=== PATIENT | female | born 1965 | race Caucasian/White ===

== ENCOUNTER 2016-10-18 14:51 | Emergency (ER) | payer MEDICAID ==
[~2016-10-18] VITALS: Ht 160 cm; Wt 69.1 kg
[2016-10-18 14:59] VITALS: BP 143/83
[2016-10-18] MEDS ORDERED: DEXAMETHASONE 4 MG TABLET PO STA (15:25)
[2016-10-18] MEDS ORDERED: DEXAMETHASONE 4 MG TABLET ONE (15:25)
== END 2016-10-18 15:34 | disposition home or self-care (01) ==
LOC: ED 15:30
DX: J02.8 Acute pharyngitis due to other specified organisms (principal); B97.89 Other viral agents as the cause of diseases classified elsewhere; J01.10 Acute frontal sinusitis, unspecified; J01.00 Acute maxillary sinusitis, unspecified
CPT/HCPCS: 99283

== ENCOUNTER 2017-03-04 18:07 | Emergency (ER) | payer MEDICAID ==
[~2017-03-04] VITALS: Ht 160 cm; Wt 67.0 kg
[2017-03-04] MEDS ORDERED: SODIUM CHLORIDE FLUSH 10ML SYR IVF ONE (18:30)
[2017-03-04] MEDS ORDERED: ONDANSETRON 2MG/ML, 2ML IVPush ONE (18:30)
[2017-03-04] MEDS ORDERED: SODIUM CHLORIDE 0.9% 1,000ML IVBOLUS ONE (18:30)
[2017-03-04] MEDS ORDERED: FAMOTIDINE 20 MG/2 ML IVP ONE (18:30)
[2017-03-04] MEDS ORDERED: MORPHINE SULFATE 4 MG/ML, 1ML IVPush ONE (19:00)
[2017-03-04 19:01] LABS: HEMATOCRIT 37.4 % (34.6-47.8); HEMOGLOBIN 12.6 g/dL (11.7-16.4); WHITE BLOOD COUNT 8.8 x10^3/uL (3.4-10)
[2017-03-04] MEDS ORDERED: BISA5TAB38 PO (19:03)
[2017-03-04 19:15] LABS: ASPARTATE AMINO TRANSFERASE 14 U/L (15-37); BLOOD UREA NITROGEN 10 mg/dL (7-18)
[2017-03-04] MEDS ORDERED: ONDANSETRON 2MG/ML, 2ML ONE (19:26)
[2017-03-04] MEDS ORDERED: MORPHINE SULFATE 4 MG/ML, 1ML ONE (19:26)
[2017-03-04] MEDS ORDERED: FAMOTIDINE 20 MG/2 ML ONE (19:26)
[2017-03-04 19:45] LABS: PATH.CAST-FLAG NOT PRESENT; SPERM-FLAG NOT PRESENT; SRC-FLAG NOT PRESENT; XTAL-FLAG NOT PRESENT; YLC-FLAG NOT PRESENT
[2017-03-04 20:57] VITALS: BP 134/82
== END 2017-03-04 22:05 | disposition home or self-care (01) ==
LOC: ED 21:04
DX: R10.32 Left lower quadrant pain (principal); R10.12 Left upper quadrant pain
CPT/HCPCS: 36415; 74177; 76830; 80053; 81001; 83690; 84703; 85025; 87086; 96361; 96374; 96375; 99285; J2405; J7030; S0028

== ENCOUNTER 2017-07-23 20:39 | Emergency (ER) | payer MEDICAID ==
[~2017-07-23] VITALS: Ht 160 cm; Wt 69.4 kg
[~2017-07-23 20:39] MED LIST: BISA5TAB38 PO
[2017-07-23 20:40] VITALS: BP 166/84
== END 2017-07-23 21:43 | disposition home or self-care (01) ==
LOC: ED 21:37
DX: K08.89 Other specified disorders of teeth and supporting structures (principal)
CPT/HCPCS: 99283

== ENCOUNTER 2017-10-11 09:49 | Emergency (ER) | payer MEDICAID ==
[~2017-10-11] VITALS: Ht 160 cm; Wt 65.6 kg
[2017-10-11] MEDS ORDERED: HYDROcodone/APAP 5/325 TABLET ONE (10:10)
[2017-10-11] MEDS ORDERED: HYDROcodone/APAP 5/325 TABLET PO PRN (10:30)
[2017-10-11] MEDS ORDERED: LIDOCAINE-MPF 1%, 5ML INFIL ONE (10:30)
[2017-10-11] MEDS ORDERED: BACITRACIN ZINC OINT 500U/GM, 0.9 GM ONE (11:04)
[2017-10-11 11:40] VITALS: BP 121/78
== END 2017-10-11 11:42 | disposition home or self-care (01) ==
LOC: ED 11:20
DX: S51.852A Open bite of left forearm, initial encounter (principal); W54.0XXA Bitten by dog, initial encounter; Y93.89 Activity, other specified; Y92.89 Other specified places as the place of occurrence of the external cause; Y99.8 Other external cause status
CPT/HCPCS: 99284

== ENCOUNTER 2017-10-16 16:48 | Inpatient (IN) | payer MEDICAID ==
[~2017-10-16] VITALS: Ht 160 cm; Wt 63.5 kg
[2017-10-16] MEDS ORDERED: ONDANSETRON 2MG/ML, 2ML IVPush PRN (18:00)
[2017-10-16] MEDS ORDERED: KETOROLAC 30 MG/1 ML IVPush PRN (18:00)
[2017-10-16] MEDS ORDERED: ACETAMINOPHEN 325 MG TABLET PO PRN (18:00)
[2017-10-16] MEDS: OXYcodone/APAP 5/325MG TABLET PO PRN (18:25)
[2017-10-16] MEDS: PLEASE ENTER HEIGHT AND WEIGHT MC SCH (18:30)
[2017-10-16] MEDS ORDERED: LEVO5TAB29 PO (18:31)
[2017-10-16 18:41] VITALS: BP 136/80
[2017-10-16] MEDS: AMPICILLIN/SULBACTAM 3 GM in SODIUM CHLORIDE 0.9% 100 ML IV SCH (19:38)
[2017-10-17] MEDS: AMPICILLIN/SULBACTAM 3 GM in SODIUM CHLORIDE 0.9% 100 ML IV SCH ×4 (00:04→17:58)
[2017-10-17] MEDS: PLEASE ENTER HEIGHT AND WEIGHT MC SCH (02:06)
[2017-10-17] MEDS: OXYcodone/APAP 5/325MG TABLET PO PRN ×2 (02:09→21:41)
[2017-10-17 03:37] VITALS: BP 143/84
[2017-10-17 07:33] VITALS: BP 150/82
[2017-10-17] MEDS ORDERED: FLUCONAZOLE 100 MG TABLET PO ONE (10:30)
[2017-10-17] MEDS ORDERED: MICONAZOLE CRM 2%, 15GM TP SCH (10:30)
[2017-10-17] MEDS ORDERED: POLYETHYLENE GLYCOL 17 GM PACKET PO PRN (12:00)
[2017-10-17] MEDS ORDERED: SENNA/DOCUSATE TABLET PO PRN (12:00)
[2017-10-17 13:50] VITALS: BP 148/83
[2017-10-17 19:58] VITALS: BP 160/90
[2017-10-17] MEDS: MICONAZOLE 7 VAG. CRM 2%, 45GM VG SCH ×2 (19:58→21:00)
[2017-10-18] MEDS: AMPICILLIN/SULBACTAM 3 GM in SODIUM CHLORIDE 0.9% 100 ML IV SCH ×2 (00:13→06:32)
[2017-10-18 00:27] VITALS: BP 144/92
[2017-10-18] MEDS: OXYcodone/APAP 5/325MG TABLET PO PRN (02:15)
[2017-10-18 07:57] VITALS: BP 148/78
[2017-10-18] MEDS: MICONAZOLE 7 VAG. CRM 2%, 45GM VG SCH (08:45)
[2017-10-18] MEDS ORDERED: AMOX1TAB64 PO (10:28)
== END 2017-10-18 11:30 | disposition home or self-care (01) | DRG 603 ==
LOC: 4NOR 16:48
PROVIDERS: ADMIT Family Medicine; ATTEND Family Medicine
DX: L03.114 Cellulitis of left upper limb (principal); B37.3 Candidiasis of vulva and vagina; F31.9 Bipolar disorder, unspecified; K59.09 Other constipation; S51.852A Open bite of left forearm, initial encounter; R63.0 Anorexia; Z83.3 Family history of diabetes mellitus; Z68.24 Body mass index [BMI] 24.0-24.9, adult; W54.0XXA Bitten by dog, initial encounter; Y93.89 Activity, other specified; Y92.89 Other specified places as the place of occurrence of the external cause; Y99.8 Other external cause status
CPT/HCPCS: J0295

== ENCOUNTER 2018-01-17 09:15 | Emergency (ER) | payer MEDICAID ==
[~2018-01-17] VITALS: Ht 160 cm; Wt 67.0 kg
[~2018-01-17 09:15] MED LIST changes: +AMOX1TAB64 PO; +LEVO5TAB29 PO
[2018-01-17 09:20] VITALS: BP 127/79
[2018-01-17] MEDS ORDERED: CETI10CA PO (09:46)
[2018-01-17] MEDS ORDERED: LIDOCAINE-MPF 2% ,5ML ONE (09:54)
[2018-01-17] MEDS ORDERED: DIPH,PERTUSS(ACELL),TET VAC/PF 0.5 ML IM-VACC ONE ×2 (10:30→10:38)
== END 2018-01-17 11:04 | disposition home or self-care (01) ==
LOC: ED 10:45
DX: S60.453A Superficial foreign body of left middle finger, initial encounter (principal); X58.XXXA Exposure to other specified factors, initial encounter; Y93.89 Activity, other specified; Y92.89 Other specified places as the place of occurrence of the external cause; Y99.8 Other external cause status
CPT/HCPCS: 90471; 90715

== ENCOUNTER 2019-09-06 18:15 | Emergency (ER) | payer MEDICAID ==
[~2019-09-06] VITALS: Ht 162.6 cm; Wt 75.0 kg
[~2019-09-06 18:15] MED LIST changes: +CETI10CA PO
[2019-09-06 18:18] VITALS: BP 137/87
--- NOTE | 2019-09-06 18:55 | NUR ---
DC EDUCATION PROVIDED, PT DEMONSTRATES UNDERSTANDING. PT AMBULATED STEADILY TO DC WITH RN
== END 2019-09-06 18:55 | disposition home or self-care (01) ==
LOC: ED 18:45
DX: J20.8 Acute bronchitis due to other specified organisms (principal); J01.10 Acute frontal sinusitis, unspecified; H92.01 Otalgia, right ear
CPT/HCPCS: 99283

== ENCOUNTER 2021-03-27 18:00 | Emergency (ER) | payer MEDICAID ==
[~2021-03-27] VITALS: Ht 160 cm; Wt 69.0 kg
[2021-03-27 18:20] VITALS: BP 142/85
[2021-03-27 19:01] LABS: BASOPHILS % (AUTO) 0 % (0-1); EOSINOPHILS % (AUTO) 4 % (1-7); LYMPHOCYTES % (AUTO) 37 % (22-44); MEAN CORPUSCULAR HGB CONC 34.8 g/dL (32.4-35.8); MEAN PLATELET VOLUME 8.2 fL (7.4-10.4); MONOCYTES % (AUTO) 6 % (2-9); NEUTROPHILS % (AUTO) 53 % (42-75); PLATELET COUNT 366 x10^3/uL (130-400); RED CELL DISTRIBUTION WIDTH 13.9 % (9.6-15.2)
[2021-03-27 19:06] LABS: ALBUMIN 3.6 g/dL (3.4-5.0); ANION GAP 7 mmol/L (5-15); CALCIUM 9.1 mg/dL (8.5-10.1); CHLORIDE 107 mmol/L (98-107)
[2021-03-27 19:07] LABS: CREATININE 1.03 mg/dL (0.55-1.02)
--- NOTE | 2021-03-27 20:07 | NUR ---
NAx 1
--- NOTE | 2021-03-27 20:52 | NUR ---
NIL X 2
--- NOTE | 2021-03-27 21:17 | NUR ---
NIL X 3
== END 2021-03-27 21:17 | disposition left against medical advice (07) ==
LOC: ED 18:20
DX: H92.01 Otalgia, right ear (principal)
CPT/HCPCS: 36415; 80048; 82040; 85025; 99283